=== PATIENT | male | born 1980 | race Caucasian/White ===

== ENCOUNTER 2017-12-04 14:28 | Emergency (ER) | payer BC, OTHER ==
[2017-12-04 14:28] VITALS: BMI 25.0
--- NOTE | 2017-12-04 15:16 | ED PDOC ---
Arrival/HPI - General Historian: Patient, Spouse - History of Present Illness Narrative History of Present Illness (Text): 12/04/17 15:13 37 year old male presents to the emergency department after experiencing difficulty breathing and an enlarged uvula. Patient states he has a history of shellfish allergy and shared a plate of food with his spouse who was eating shrimp. Patient himself did not eat any shrimp but did share a plate with shrimp on it. He had no immediate symptoms however today he felt his throat closing up. His gave him 30mL of benadryl 2 hours prior to arrival which helped with the symptoms. He denies any shortness of breath or wheezing at this time. His uvula is still larger than normal but not painful or obstructing. Denies fever, chills, nausea, vomiting, headache, dizziness, cough, rhinorrhea, chest pain, palpitations, hearing or vision changes, or urinary symptoms. Time/Duration: 24 hours Symptom Onset: Sudden Symptom Course: Improving Severity Level: Mild Context: Home <James Gomes - Last Filed: 12/04/17 15:55> <Misael Diaz DO - Last Filed: 12/04/17 18:12> - General Chief Complaint: ENT Problem Time Seen by Provider: 12/04/17 14:58 Past Medical History - Provider Review Nursing Documentation Reviewed: Yes - Infectious Disease Hx of Infectious Diseases: None - Cardiac Hx Cardiac Disorders: No - Pulmonary Hx Respiratory Disorders: No - Neurological Hx Neurological Disorder: No - HEENT Hx HEENT Disorder: No - Renal Hx Renal Disorder: No - Endocrine/Metabolic Hx Endocrine Disorders: No - Hematological/Oncological Hx Blood Disorders: No - Integumentary Hx Dermatological Disorder: No - Musculoskeletal/Rheumatological Hx Musculoskeletal Disorders: Yes Hx Fractures: Yes - Gastrointestinal Hx Gastrointestinal Disorders: No - Genitourinary/Gynecological Hx Genitourinary Disorders: No - Psychiatric Hx Psychophysiologic Disorder: No Hx Substance Use: No - Surgical History Hx Musculoskeletal Surgery: Yes (right hand fx) - Anesthesia Hx Anesthesia: Yes Hx Anesthesia Reactions: No Hx Malignant Hyperthermia: No - Suicidal Assessment Feels Threatened In Home Enviroment: No <James Gomes - Last Filed: 12/04/17 15:55> Family/Social History - Physician Review Nursing Documentation Reviewed: Yes Family/Social History: Unknown Family HX Smoking Status: E Hx Alcohol Use: Yes Frequency of alcohol use: Socially Hx Substance Use: No <James Gomes - Last Filed: 12/04/17 15:55> Allergies/Home Meds <James Gomes - Last Filed: 12/04/17 15:55> <Misael Diaz DO - Last Filed: 12/04/17 18:12> Allergies/Adverse Reactions: Allergies shellfish derived Allergy (Verified 12/04/17 14:33) SWELLING Review of Systems - Physician Review All systems were reviewed & negative as marked: Yes - Review of Systems Constitutional: absent: Fevers Eyes: absent: Vision Changes ENT: absent: Hearing Changes, Voice Changes, Sore Throat, Rhinorrhea Respiratory: absent: SOB, Cough, Wheezing Cardiovascular: absent: Chest Pain, Palpitations Gastrointestinal: absent: Abdominal Pain, Nausea, Vomiting Genitourinary Male: absent: Dysuria, Hematuria Musculoskeletal: absent: Arthralgias Skin: absent: Rash Neurological: absent: Headache, Dizziness Endocrine: absent: Diaphoresis <James Gomes - Last Filed: 12/04/17 15:55> Physical Exam Vital Signs Reviewed: Yes Vital Signs Temp Pulse Resp BP Pulse Ox 12/04/17 14:34 98.8 F 72 16 135/83 97 Temperature: Afebrile Blood Pressure: Normal Pulse: Regular Respiratory Rate: Normal Appearance: Positive for: Well-Appearing, Non-Toxic, Comfortable Pain Distress: None Mental Status: Positive for: Alert and Oriented X 3 - Systems Exam Head: Present: Atraumatic, Normocephalic Pupils: Present: PERRL Extroacular Muscles: Present: EOMI Mouth: Present: Moist Mucous Membranes, Normal Lips, Normal Tounge, Normal Teeth. No: Drooling Pharnyx: Present: Soft Palate/Uvular Edema. No: ERYTHEMA, EXUDATE, TONSILS ENLARGED, Uvular Deviation, Muffled/Hoarse Voice, Strider Nose (External): Present: Atraumatic Nose (Internal): Present: Normal Inspection Respiratory/Chest: Present: Clear to Auscultation, Good Air Exchange. No: Respiratory Distress, Accessory Muscle Use Cardiovascular: Present: Regular Rate and Rhythm, Normal S1, S2. No: Murmurs Abdomen: No: Tenderness, Distention, Peritoneal Signs Upper Extremity: Present: Normal Inspection. No: Cyanosis, Edema Lower Extremity: Present: Normal Inspection. No: Edema Skin: Present: Warm, Dry, Normal Color. No: Rashes Psychiatric: Present: Alert, Oriented x 3, Normal Insight, Normal Concentration <James Gomes - Last Filed: 12/04/17 15:55> Vital Signs Temp Pulse Resp BP Pulse Ox 12/04/17 14:34 98.8 F 72 16 135/83 97 <Misael Diaz DO - Last Filed: 12/04/17 18:12> Medical Decision Making ED Course and Treatment: 12/04/17 15:18 37M, presents to the ED with allergic reaction presenting as uvula swelling -IM Decadron -Prednisone upon discharge Patient verbalized understanding and agreement of treatment plan case reviewed and discussed with attending provider - Medication Orders Current Medication Orders: Discontinued Medications Dexamethasone (Decadron Inj) 10 mg IM STAT STA Stop: 12/04/17 15:08 <James Gomes - Last Filed: 12/04/17 15:55> ED Course and Treatment: 12/04/17 15:22 Patient Seen with Resident: In agreement with resident note which contains more details about the patient. Patient seen and evaluated with resident. Came up with plan and treatment together. - Medication Orders Current Medication Orders: Discontinued Medications Dexamethasone (Decadron Inj) 10 mg IM STAT STA Stop: 12/04/17 15:08 <Misael Diaz DO - Last Filed: 12/04/17 18:12> - PA / CASCADE OPERATOR / Resident Statement MATT has reviewed & agrees with the documentation as recorded. MATT has examined the patient and agrees with the treatment plan. <Misael Diaz DO - Last Filed: 12/04/17 18:12> Disposition/Present on Arrival - Present on Arrival Any Indicators Present on Arrival: No History of DVT/PE: No History of Uncontrolled Diabetes: No Urinary Catheter: No History of Decub. Ulcer: No History Surgical Site Infection Following: None - Disposition Have Diagnosis and Disposition been Completed?: Yes Disposition Time: 15:20 Patient Plan: Discharge <James Gomes - Last Filed: 12/04/17 15:55> <Misael Diaz DO - Last Filed: 12/04/17 18:12> - Disposition Diagnosis: Food allergy Disposition: HOME/ ROUTINE Condition: GOOD Discharge Instructions (ExitCare): Food Allergy Additional Instructions: YAN TRISTAN, thank you for letting us take care of you today. The emergency medical care you received today was directed at your acute symptoms. If you were prescribed any medication, please fill it and take as directed. It may take several days for your symptoms to resolve. Return to the Emergency Department if your symptoms worsen, do not improve, or if you have any other problems. Please contact your doctor or call one of the physicians/clinics you have been referred to that are listed on the Patient Visit Information form that is included in your discharge packet. Bring any paperwork you were given at discharge with you along with any medications you are taking to your follow up visit. Our treatment cannot replace ongoing medical care by a primary care provider outside of the emergency department. Thank you for allowing the [facility] team to be part of your care today. Follow up with your primary care doctor in 2-3 days for re-evaluation and further management. Prescriptions: predniSONE [Prednisone] 40 mg PO DAILY #6 tab Referrals: PCP,NO [Primary Care Provider] - Follow up with primary Forms: [employer] ([place]ayan)
[2017-12-04 15:41] VITALS: BP 135/73; PULSE 70; RESP 18; TEMP 98.7; O2SAT 100
== END 2017-12-04 15:41 | disposition home or self-care (01) ==
LOC: ED 14:28
DX: L27.2 Dermatitis due to ingested food (principal)
CPT/HCPCS: 96372; 99282; J1100

== ENCOUNTER 2018-01-10 06:59 | Inpatient (IN) | payer BC ==
[2018-01-10 07:21] VITALS: BMI 25.7
--- NOTE | 2018-01-10 07:41 | ED PDOC ---
Arrival/HPI - General Chief Complaint: GI Problem Time Seen by Provider: 01/10/18 07:08 Historian: Patient, Spouse - History of Present Illness Narrative History of Present Illness (Text): 01/10/18 07:40 Patient is a 37 year old male who presents with his to the Emergency department for two episodes of rectal bleeding that occurred today. Patient reports that at approximately 2am today he started feeling like he was about to lose consciousness and became diaphoretic. He subsequently used the bathroom where he had an episode of melena. Per patient experienced syncope approximately 6:30 today, and an an episode of rectal bleeding with bright red blood in the toilet. Patient admits that he takes Advil PM daily to sleep. Per , patient has admitted to her that he experiences intermittent epigastric pain. Patient currently denies fevers, chills, cough, shortness of breath, chest pain, dyspnea on exertion, abdominal pain, nausea, vomiting, diarrhea, back pain, neck pain, headache, dizziness, or any other complaint. Time/Duration: 4-6 hours Symptom Onset: Sudden Symptom Course: Intermittent Context: Home, Work Past Medical History - Provider Review Nursing Documentation Reviewed: Yes - Infectious Disease Hx of Infectious Diseases: None - Cardiac Hx Cardiac Disorders: No - Pulmonary Hx Respiratory Disorders: No - Neurological Hx Neurological Disorder: No - HEENT Hx HEENT Disorder: No - Renal Hx Renal Disorder: No - Endocrine/Metabolic Hx Endocrine Disorders: No - Hematological/Oncological Hx Blood Disorders: No - Integumentary Hx Dermatological Disorder: No - Musculoskeletal/Rheumatological Hx Musculoskeletal Disorders: Yes Hx Fractures: Yes - Gastrointestinal Hx Gastrointestinal Disorders: No - Genitourinary/Gynecological Hx Genitourinary Disorders: No - Psychiatric Hx Psychophysiologic Disorder: No Hx Substance Use: No - Surgical History Hx Musculoskeletal Surgery: Yes (right hand fx) - Anesthesia Hx Anesthesia: Yes Hx Anesthesia Reactions: No Hx Malignant Hyperthermia: No - Suicidal Assessment Feels Threatened In Home Enviroment: No Family/Social History - Physician Review Nursing Documentation Reviewed: Yes Family/Social History: No Known Family HX Smoking Status: Vape Hx Alcohol Use: Yes Frequency of alcohol use: Socially Hx Substance Use: No Allergies/Home Meds Allergies/Adverse Reactions: Allergies shellfish derived Allergy (Verified 01/10/18 07:25) SWELLING Home Medications: Home Meds Medication Instructions Recorded Confirmed Ibuprofen/Diphenhydramine Cit 2 tab PO DAILY 01/10/18 01/10/18 [Advil Pm Caplet] Review of Systems - Physician Review All systems were reviewed & negative as marked: Yes - Review of Systems Constitutional: absent: Fevers, Night Sweats Respiratory: absent: SOB, Cough Cardiovascular: absent: Chest Pain Gastrointestinal: Hematochezia. absent: Abdominal Pain, Nausea, Vomiting Musculoskeletal: absent: Back Pain, Neck Pain Physical Exam - Physical Exam Narrative Physical Exam (Text): 01/10/18 08:06 Constitutional: No acute distress. Head: Normocephalic. Atraumatic. Eyes: PERRL. ENT: Moist mucous membranes. Neck: Supple. Cardiovascular: Regular rate. Chest: No tenderness. Respiratory: Clear to auscultation bilaterally. GI: Soft. Nontender. Nondistended. Rectal Exam: Red blood noted, positive guaiac test. No fissures or hemorrhoids. Back: No CVA tenderness. Musculoskeletal: No tenderness or swelling of extremities. Skin: No rash. Neurologic: Alert, no focal deficit. Vital Signs Reviewed: Yes Vital Signs Temp Pulse Resp BP Pulse Ox 01/10/18 07:21 97.6 F 81 18 106/67 98 Temperature: Afebrile Blood Pressure: Normal Pulse: Regular Respiratory Rate: Normal Appearance: Positive for: Well-Appearing Mental Status: Positive for: Alert and Oriented X 3 Medical Decision Making ED Course and Treatment: 01/10/18 07:40 Impression: 37 year old male who complains of syncope, melena, and an episode of rectal bleeding earlier today. Plan: --EKG -- Labs -- Cardiac enzymes -- Blood work -- Chest X-ray -- Protonix -- Reassess and disposition Prior Visits: Notes and results from previous visits were reviewed. Progress Notes: Accepted to hospitalist service. - Lab Interpretations I have reviewed the lab results: Yes - RAD Interpretation Narrative RAD Interpretations (Text): 01/10/18 09:07 Chest X-ray: Dictator : Wili Santoro MD IMPRESSION: No active disease. Steam Tank Operator: Radiologist - EKG Interpretation EKG Interpretation (Text): 01/10/18 07:51 EKG shows NSR at [address] elevations. Normal axis and intervals. Interpreted by me. Interpreted by ED Physician: Yes Type: 12 lead EKG - Scribe Statement The provider has reviewed the documentation as recorded by the Scribe Keith Mixon Provider Scribe Attestation: All medical record entries made by the Scribe were at my direction and personally dictated by me. I have reviewed the chart and agree that the record accurately reflects my personal performance of the history, physical exam, medical decision making, and the department course for this patient. I have also personally directed, reviewed, and agree with the discharge instructions and disposition. Disposition/Present on Arrival - Present on Arrival Any Indicators Present on Arrival: No History of DVT/PE: No History of Uncontrolled Diabetes: No Urinary Catheter: No History of Decub. Ulcer: No History Surgical Site Infection Following: None - Disposition Have Diagnosis and Disposition been Completed?: Yes Diagnosis: GI bleed, Symptomatic anemia Disposition: HOSPITALIZED Disposition Time: 08:45 Patient Plan: Admission Condition: GUARDED
[2018-01-10 08:23] LABS: BASO # 0.01 K/mm3 (0.0-2.0); BASO % 0.1 % (0.0-3.0); EOS # 0.2 (0.0-0.7); EOS % 2.5 % (1.5-5.0); GRAN # 4.74 (1.4-6.5); GRAN % 57.5 % (50.0-68.0); HEMOGLOBIN 12.1 g/dL (14.0-18.0); LYMPH # 2.7 (1.2-3.4); LYMPH % 33.1 % (22.0-35.0); MEAN CELL VOLUME 83.9 fl (80.0-105.0); MEAN CORPUSCULAR HEMOGLOBIN 28.2 pg (25.0-35.0); MEAN CORPUSCULAR HGB CONC 33.6 g/dl (31.0-37.0); MONO # 0.6 (0.1-0.6); MONO % 6.8 % (1.0-6.0); RBC 4.29 10^6/uL (3.5-6.1); RED CELL DISTRIBUTION WIDTH 12.1 % (11.5-14.5); WHITE BLOOD COUNT 8.3 10^3/uL (4.5-11.0)
[2018-01-10 08:30] LABS: ALB/GLOB RATIO 1.5 (1.1-1.8); ALBUMIN 3.7 g/dL (3.0-4.8); ALT/SGPT 27 U/L (7-56); AST/SGOT 21 U/L (17-59); BLOOD UREA NITROGEN 32 mg/dL (7-21); CALCIUM 8.3 mg/dL (8.4-10.5); GFR NON-AFRICAN AMERICAN > 60; LIPASE 92 U/L (23-300)
[2018-01-10 08:31] LABS: PARTIAL THROMBOPLASTIN TIME 24.7 Seconds (25.1-36.5); PROTHROMBIN TIME 11.5 SECONDS (9.4-12.5)
--- NOTE | 2018-01-10 08:41 | RAD ---
Date of service: 01/10/2018 HISTORY: gi bleed COMPARISON: No prior. FINDINGS: LUNGS: No active pulmonary disease. PLEURA: No significant pleural effusion identified, no pneumothorax apparent. CARDIOVASCULAR: No aortic atherosclerotic calcification present. Normal cardiac size. No pulmonary vascular congestion. OSSEOUS STRUCTURES: No significant abnormalities. VISUALIZED UPPER ABDOMEN: Normal. OTHER FINDINGS: None. IMPRESSION: No active disease.
[2018-01-10 08:42] LABS: TROPONIN I < 0.01 ng/mL
[2018-01-10] MEDS ORDERED: Sodium Chloride 0.9% 1,000 ML IV SCH ×2 (09:45→09:46)
--- NOTE | 2018-01-10 10:20 | CP.PCM.CON ---
<Baltazar Spears - Last Filed: 01/10/18 10:20> History of Present Illness - History of Present Illness History of Present Illness: PGY-2 GI consult note for Dr Pham Mr Gaitan is a 37 year old male with no significant past medical history who presents to the ED accompanied by his because for dark red blood per rectum. He stated that at approx 2am today he started feeling like he was about to lose consciousness and became diaphoretic. He subsequently used the bathroom where he noticed blood in the toilet bowl. Per patient experienced pre- syncope approximately 6:30am, and an another episode of rectal bleeding with bright red blood in the toilet. Patient admits he experiences intermittent epigastric pain. Of note, patient has been taking sleep aids since he was a teenager however he recently switched to Advil PM about 2 months ago and has been taking 1-2 tablets every night. Patient currently denies fevers, chills, cough, shortness of breath, chest pain, dyspnea on exertion, abdominal pain, nausea, vomiting, diarrhea, back pain, neck pain, headache, dizziness, or any ot her complaint. PMHx: no significant past medical hx PSHx: right hand fracture Allergies: shellfish - rash Home Medications: Advil PM every night for sleep SocialHx: uses a vape pen daily for past 5 years, social alcohol use, denies illicits, lives at home with and 3 kids FamHx: denies hx of colon ca Review of Systems - Constitutional Constitutional: absent: Chills, Fever - EENT Eyes: absent: Change in Vision - Cardiovascular Cardiovascular: absent: Chest Pain, Dyspnea on Exertion - Respiratory Respiratory: absent: Cough, Dyspnea - Gastrointestinal Gastrointestinal: Abdominal Pain, Melena, Nausea. absent: Bloating, Change in Bowel Habits, Coffee Ground Emesis, Vomiting - Genitourinary Genitourinary: absent: Dysuria - Musculoskeletal Musculoskeletal: absent: Back Pain - Integumentary Integumentary: absent: Bleeding Lesions Past Patient History - Infectious Disease Hx of Infectious Diseases: None - Past Social History Smoking Status: Vape - CARDIAC Hx Cardiac Disorders: No - PULMONARY Hx Respiratory Disorders: No - NEUROLOGICAL Hx Neurological Disorder: No - HEENT Hx HEENT Problems: No - RENAL Hx Chronic Kidney Disease: No - ENDOCRINE/METABOLIC Hx Endocrine Disorders: No - HEMATOLOGICAL/ONCOLOGICAL Hx Blood Disorders: No - INTEGUMENTARY Hx Dermatological Problems: No - MUSCULOSKELETAL/RHEUMATOLOGICAL Hx Musculoskeletal Disorders: Yes Hx Fractures: Yes - GASTROINTESTINAL Hx Gastrointestinal Disorders: No - GENITOURINARY/GYNECOLOGICAL Hx Genitourinary Disorders: No - PSYCHIATRIC Hx Psychophysiologic Disorder: No Hx Substance Use: No - SURGICAL HISTORY Hx Musculoskeletal Surgery: Yes (right hand fx) - ANESTHESIA Hx Anesthesia: Yes Hx Anesthesia Reactions: No Hx Malignant Hyperthermia: No Meds Allergies/Adverse Reactions: Allergies Allergy/AdvReac Type Severity Reaction Status Date / Time shellfish derived Allergy SWELLING Verified 01/10/18 14:41 - Medications Medications: Current Medications Sodium Chloride (Sodium Chloride 0.9%) 1,000 mls @ 125 mls/hr IV .Q8H BERTIN Ondansetron HCl (Zofran Inj) 4 mg IVP Q6H PRN PRN Reason: Nausea/Vomiting Pantoprazole Sodium (Protonix Inj) 40 mg IVP Q12 BERTIN Physical Exam - Constitutional Appears: Well, No Acute Distress - Head Exam Head Exam: ATRAUMATIC, NORMAL INSPECTION - Eye Exam Eye Exam: EOMI, Normal appearance, PERRL. absent: Scleral icterus - ENT Exam ENT Exam: Mucous Membranes Moist - Respiratory Exam Respiratory Exam: Clear to Auscultation Bilateral. absent: Rales, Rhonchi, Wheezes - Cardiovascular Exam Cardiovascular Exam: REGULAR RHYTHM, +S1, +S2. absent: Tachycardia, JVD, Systolic Murmur - GI/Abdominal Exam GI & Abdominal Exam: Normal Bowel Sounds, Soft. absent: Distended, Firm, Guarding, Hernia, Tenderness - Rectal Exam Additional comments: -Rectal exam in ED showed red blood, positive guaiac test, no fissures or hemorroids -Rectal exam a few hours later on floors showed increased rectal tone, brown stool, no ria blood - Extremities Exam Extremities exam: Positive for: normal inspection - Neurological Exam Neurological exam: Alert, Oriented x3 - Skin Skin Exam: Normal Color, Warm Results - Vital Signs Recent Vital Signs: Last Vital Signs Temp 98.2 F 01/10/18 09:41 Pulse 76 01/10/18 09:41 Resp 16 01/10/18 09:41 BP 116/73 01/10/18 09:41 Pulse Ox 97 01/10/18 09:41 - Labs Result Diagrams: 01/10/18 08:03 01/10/18 08:03 Labs: Laboratory Results - last 24 hr 01/10/18 01/10/18 01/10/18 08:00 08:03 08:03 WBC 8.3 RBC 4.29 Hgb 12.1 L Hct 36.0 L MCV 83.9 MCH 28.2 MCHC 33.6 RDW 12.1 Plt Count 258 MPV 10.0 Gran % 57.5 Lymph % (Auto) 33.1 Chester % (Auto) 6.8 H Eos % (Auto) 2.5 Baso % (Auto) 0.1 Gran # 4.74 Lymph # (Auto) 2.7 Chester # (Auto) 0.6 Eos # (Auto) 0.2 Baso # (Auto) 0.01 PT 11.5 INR 1.00 APTT 24.7 L Sodium Potassium Chloride Carbon Dioxide Anion Gap BUN Creatinine Est GFR ( Amer) Est GFR (Non-Af Amer) Random Glucose Calcium Phosphorus 3.0 Magnesium 2.1 Total Bilirubin AST ALT Alkaline Phosphatase Troponin I Total Protein Albumin Globulin Albumin/Globulin Ratio Lipase Blood Type Blood Type Confirm Antibody Screen BBK History Checked 01/10/18 01/10/18 01/10/18 08:03 08:03 08:03 WBC RBC Hgb Hct MCV MCH MCHC RDW Plt Count MPV Gran % Lymph % (Auto) Chester % (Auto) Eos % (Auto) Baso % (Auto) Gran # Lymph # (Auto) Chester # (Auto) Eos # (Auto) Baso # (Auto) PT INR APTT Sodium 136 Potassium 4.8 Chloride 106 Carbon Dioxide 25 Anion Gap 10 BUN 32 H Creatinine 0.9 Est GFR ( Amer) > 60 Est GFR (Non-Af Amer) > 60 Random Glucose 104 Calcium 8.3 L Phosphorus Magnesium Total Bilirubin 0.2 AST 21 ALT 27 Alkaline Phosphatase 64 Troponin I < 0.01 Total Protein 6.2 Albumin 3.7 Globulin 2.5 Albumin/Globulin Ratio 1.5 Lipase 92 Blood Type O POSITIVE Blood Type Confirm O POSITIVE Antibody Screen Negative BBK History Checked No verified bt Assessment & Plan - Assessment and Plan (Free Text) Plan: Mr Gaitan is a 37 year old male with no significant past medical history who presents to the ED for two episodes of dark red blood per rectum: Hematochezia -likely 2/2 to daily nsaid use (had been taking advil PM nightly for past 2 months) -trend hemoglobin with serial H/H's -protonix 40mg ivp q12h - switch to drip if further bleeding noticed -npo until H/H stablized -zofran for nausea -f/u orthostatics -f/u alcohol and urine drug screen -patient will benefit from EGD to rule out upper gi bleed, scheduling time will depend on patient's clinical course and hgb level Seen and discussed with Dr Pham <Gladis Pham V - Last Filed: 01/10/18 19:35> Meds - Medications Medications: Current Medications Sodium Chloride (Sodium Chloride 0.9%) 1,000 mls @ 125 mls/hr IV .Q8H BERTIN Ondansetron HCl (Zofran Inj) 4 mg IVP Q6H PRN PRN Reason: Nausea/Vomiting Pantoprazole Sodium (Protonix Inj) 40 mg IVP Q12 BERTIN Results - Vital Signs Recent Vital Signs: Last Vital Signs Temp 98 F 01/10/18 14:00 Pulse 74 01/10/18 14:00 Resp 16 01/10/18 14:43 BP 116/73 01/10/18 09:41 Pulse Ox 98 01/10/18 14:00 - Labs Result Diagrams: 01/10/18 14:00 01/10/18 08:03 Labs: Laboratory Results - last 24 hr 01/10/18 01/10/18 01/10/18 08:00 08:00 08:03 WBC 8.3 RBC 4.29 Hgb 12.1 L Hct 36.0 L MCV 83.9 MCH 28.2 MCHC 33.6 RDW 12.1 Plt Count 258 MPV 10.0 Gran % 57.5 Lymph % (Auto) 33.1 Chester % (Auto) 6.8 H Eos % (Auto) 2.5 Baso % (Auto) 0.1 Gran # 4.74 Lymph # (Auto) 2.7 Chester # (Auto) 0.6 Eos # (Auto) 0.2 Baso # (Auto) 0.01 PT INR APTT Sodium Potassium Chloride Carbon Dioxide Anion Gap BUN Creatinine Est GFR ( Amer) Est GFR (Non-Af Amer) Random Glucose Calcium Phosphorus 3.0 Magnesium 2.1 Total Bilirubin AST ALT Alkaline Phosphatase Troponin I Total Protein Albumin Globulin Albumin/Globulin Ratio Lipase Urine Opiates Screen Urine Methadone Screen Ur Barbiturates Screen Ur Phencyclidine Scrn Ur Amphetamines Screen U Benzodiazepines Scrn U Oth Cocaine Metabols U Cannabinoids Screen Alcohol, Quantitative < 10 Blood Type Blood Type Confirm Antibody Screen BBK History Checked 01/10/18 01/10/18 01/10/18 08:03 08:03 08:03 WBC RBC Hgb Hct MCV MCH MCHC RDW Plt Count MPV Gran % Lymph % (Auto) Chester % (Auto) Eos % (Auto) Baso % (Auto) Gran # Lymph # (Auto) Chester # (Auto) Eos # (Auto) Baso # (Auto) PT 11.5 INR 1.00 APTT 24.7 L Sodium 136 Potassium 4.8 Chloride 106 Carbon Dioxide 25 Anion Gap 10 BUN 32 H Creatinine 0.9 Est GFR ( Amer) > 60 Est GFR (Non-Af Amer) > 60 Random Glucose 104 Calcium 8.3 L Phosphorus Magnesium Total Bilirubin 0.2 AST 21 ALT 27 Alkaline Phosphatase 64 Troponin I < 0.01 Total Protein 6.2 Albumin 3.7 Globulin 2.5 Albumin/Globulin Ratio 1.5 Lipase 92 Urine Opiates Screen Urine Methadone Screen Ur Barbiturates Screen Ur Phencyclidine Scrn Ur Amphetamines Screen U Benzodiazepines Scrn U Oth Cocaine Metabols U Cannabinoids Screen Alcohol, Quantitative Blood Type O POSITIVE Blood Type Confirm Antibody Screen Negative BBK History Checked No verified bt 01/10/18 01/10/18 01/10/18 08:03 13:45 14:00 WBC 7.0 RBC 4.02 Hgb 11.3 L Hct 34.1 L MCV 84.8 MCH 28.1 MCHC 33.1 RDW 12.2 Plt Count 258 MPV 10.4 Gran % Lymph % (Auto) Chester % (Auto) Eos % (Auto) Baso % (Auto) Gran # Lymph # (Auto) Chester # (Auto) Eos # (Auto) Baso # (Auto) PT INR APTT Sodium Potassium Chloride Carbon Dioxide Anion Gap BUN Creatinine Est GFR ( Amer) Est GFR (Non-Af Amer) Random Glucose Calcium Phosphorus Magnesium Total Bilirubin AST ALT Alkaline Phosphatase Troponin I < 0.01 Total Protein Albumin Globulin Albumin/Globulin Ratio Lipase Urine Opiates Screen Urine Methadone Screen Ur Barbiturates Screen Ur Phencyclidine Scrn Ur Amphetamines Screen U Benzodiazepines Scrn U Oth Cocaine Metabols U Cannabinoids Screen Alcohol, Quantitative Blood Type Blood Type Confirm O POSITIVE Antibody Screen BBK History Checked 01/10/18 17:40 WBC RBC Hgb Hct MCV MCH MCHC RDW Plt Count MPV Gran % Lymph % (Auto) Chester % (Auto) Eos % (Auto) Baso % (Auto) Gran # Lymph # (Auto) Chester # (Auto) Eos # (Auto) Baso # (Auto) PT INR APTT Sodium Potassium Chloride Carbon Dioxide Anion Gap BUN Creatinine Est GFR ( Amer) Est GFR (Non-Af Amer) Random Glucose Calcium Phosphorus Magnesium Total Bilirubin AST ALT Alkaline Phosphatase Troponin I Total Protein Albumin Globulin Albumin/Globulin Ratio Lipase Urine Opiates Screen Negative Urine Methadone Screen Negative Ur Barbiturates Screen Negative Ur Phencyclidine Scrn Negative Ur Amphetamines Screen Negative U Benzodiazepines Scrn Negative U Oth Cocaine Metabols Negative U Cannabinoids Screen Negative Alcohol, Quantitative Blood Type Blood Type Confirm Antibody Screen BBK History Checked Attending/Attestation - Attestation I have personally seen and examined this patient.: Yes I have fully participated in the care of the patient.: Yes I have reviewed all pertinent clinical information: Yes Notes (Text): This is an addendum to GI consult report dictated by the Development Technician.The patient was seen and evaluated earlier. Medical records, lab studies, imagings were reviewed. Last 24 hours events reviewed. Agreed with the above treatment plan as outlined in Development Technician 's notes with the addition of the following This patient was admitted with bleeding per rectum and syncopal episode History of NSAID use Mildly elevated bilirubin Rule out UGI bleeding source Other DD include Lower GI source including hemorrhoids diverticulosis AVM Followup Hb HCT EGD continue IV protonix 01/10/18 19:33
--- NOTE | 2018-01-10 12:27 | CARD ---
APPROVED REPORT Date of service: 01/10/2018 EKG Measurement Heart [id number] <Conclusion> Poor data quality, interpretation may be adversely affected Normal sinus rhythm Nonspecific ST and T wave abnormality Abnormal ECG
--- NOTE | 2018-01-10 13:51 | CP.PCM.HP ---
<Bishop García - Last Filed: 01/10/18 13:42> History of Present Illness - History of Present Illness History of Present Illness: Bishop García, PGY1 History and Physical for Dr. Garibay. cc: rectal bleeding Patient is a 37 y/o M with no PMHx who present to the ED accompanied by his for dark red blood per rectum. He stated that at approximately 2am today he started feeling like he was about to lose consciousness and became diaphoretic. He subsequently used the bathroom where he noticed blood in the toilet bowl. In the ED, vital signs are stable. Patient's Hgb was 12.1. Patient was in no acute distress and not actively bleeding. Rectal exam in ED showed red blood, positive guaiac test, no fissures or hemorroids. Medical team was consulted for evaluation of rectal bleeding. Patient had an episode of syncope at around 6:30 am this morning with another episode of rectal bleeding with bright red blood per rectum. Patient has been taking Advil twice a day to help with his insomnia. Patient denies fevers, chills, shortness of breath, chest pain, abdominal pain, nausea, vomiting, lower extremity pain and edema. Vital signs are stable. A full 12 point ROS was conducted and unremarkable except as stated above. PMHx: no significant past medical hx PSHx: right hand fracture Allergies: shellfish - rash Home Medications: Advil PM every night for sleep SocialHx: uses a vape pen daily for past 5 years, social alcohol use, denies illicits, lives at home with and 3 kids FamHx: denies hx of colon ca Present on Admission - Present on Admission Any Indicators Present on Admission: No History of DVT/PE: No History of Uncontrolled Diabetes: No Urinary Catheter: No Decubitus Ulcer Present: No Review of Systems - Review of Systems All systems: reviewed and no additional remarkable complaints except (as per HPI.) Past Patient History - Infectious Disease Hx of Infectious Diseases: None - Past Social History Smoking Status: Vape - CARDIAC Hx Cardiac Disorders: No - PULMONARY Hx Respiratory Disorders: No - NEUROLOGICAL Hx Neurological Disorder: No - HEENT Hx HEENT Problems: No - RENAL Hx Chronic Kidney Disease: No - ENDOCRINE/METABOLIC Hx Endocrine Disorders: No - HEMATOLOGICAL/ONCOLOGICAL Hx Blood Disorders: No - INTEGUMENTARY Hx Dermatological Problems: No - MUSCULOSKELETAL/RHEUMATOLOGICAL Hx Musculoskeletal Disorders: Yes Hx Fractures: Yes - GASTROINTESTINAL Hx Gastrointestinal Disorders: No - GENITOURINARY/GYNECOLOGICAL Hx Genitourinary Disorders: No - PSYCHIATRIC Hx Psychophysiologic Disorder: No Hx Substance Use: No - SURGICAL HISTORY Hx Musculoskeletal Surgery: Yes (right hand fx) - ANESTHESIA Hx Anesthesia: Yes Hx Anesthesia Reactions: No Hx Malignant Hyperthermia: No Meds Allergies/Adverse Reactions: Allergies Allergy/AdvReac Type Severity Reaction Status Date / Time shellfish derived Allergy SWELLING Verified 01/10/18 14:41 Physical Exam - Constitutional Appears: No Acute Distress - Head Exam Head Exam: ATRAUMATIC, NORMAL INSPECTION, NORMOCEPHALIC - Eye Exam Eye Exam: EOMI, Normal appearance, PERRL Pupil Exam: NORMAL ACCOMODATION, PERRL - ENT Exam ENT Exam: Mucous Membranes Moist, Normal Exam - Neck Exam Neck exam: Positive for: Normal Inspection - Respiratory Exam Respiratory Exam: Clear to Auscultation Bilateral, NORMAL BREATHING PATTERN. absent: Rales, Rhonchi, Wheezes - Cardiovascular Exam Cardiovascular Exam: RRR, +S1, +S2 - GI/Abdominal Exam GI & Abdominal Exam: Normal Bowel Sounds, Soft. absent: Firm, Guarding, Mass, Organomegaly, Rebound, Rigid, Tenderness - Rectal Exam Rectal Exam: Deferred (Patient had two rectal exams prior to interview. ) - Extremities Exam Extremities exam: Positive for: normal capillary refill, normal inspection, pedal pulses present. Negative for: pedal edema, tenderness - Neurological Exam Neurological exam: Alert, CN II-XII Intact, Normal Gait, Oriented x3, Reflexes Normal - Skin Skin Exam: Dry, Intact, Normal Color, Warm Results - Vital Signs Recent Vital Signs: Last Vital Signs Temp 98.2 F 01/10/18 09:41 Pulse 76 01/10/18 09:41 Resp 16 01/10/18 09:41 BP 116/73 01/10/18 09:41 Pulse Ox 97 01/10/18 09:41 - Labs Result Diagrams: 01/10/18 08:03 01/10/18 08:03 Labs: Laboratory Results - last 24 hr 01/10/18 01/10/18 01/10/18 08:00 08:00 08:03 WBC 8.3 RBC 4.29 Hgb 12.1 L Hct 36.0 L MCV 83.9 MCH 28.2 MCHC 33.6 RDW 12.1 Plt Count 258 MPV 10.0 Gran % 57.5 Lymph % (Auto) 33.1 Long % (Auto) 6.8 H Eos % (Auto) 2.5 Baso % (Auto) 0.1 Gran # 4.74 Lymph # (Auto) 2.7 Long # (Auto) 0.6 Eos # (Auto) 0.2 Baso # (Auto) 0.01 PT INR APTT Sodium Potassium Chloride Carbon Dioxide Anion Gap BUN Creatinine Est GFR ( Amer) Est GFR (Non-Af Amer) Random Glucose Calcium Phosphorus 3.0 Magnesium 2.1 Total Bilirubin AST ALT Alkaline Phosphatase Troponin I Total Protein Albumin Globulin Albumin/Globulin Ratio Lipase Alcohol, Quantitative < 10 Blood Type Blood Type Confirm Antibody Screen BBK History Checked 01/10/18 01/10/18 01/10/18 08:03 08:03 08:03 WBC RBC Hgb Hct MCV MCH MCHC RDW Plt Count MPV Gran % Lymph % (Auto) Long % (Auto) Eos % (Auto) Baso % (Auto) Gran # Lymph # (Auto) Long # (Auto) Eos # (Auto) Baso # (Auto) PT 11.5 INR 1.00 APTT 24.7 L Sodium 136 Potassium 4.8 Chloride 106 Carbon Dioxide 25 Anion Gap 10 BUN 32 H Creatinine 0.9 Est GFR ( Amer) > 60 Est GFR (Non-Af Amer) > 60 Random Glucose 104 Calcium 8.3 L Phosphorus Magnesium Total Bilirubin 0.2 AST 21 ALT 27 Alkaline Phosphatase 64 Troponin I < 0.01 Total Protein 6.2 Albumin 3.7 Globulin 2.5 Albumin/Globulin Ratio 1.5 Lipase 92 Alcohol, Quantitative Blood Type O POSITIVE Blood Type Confirm Antibody Screen Negative BBK History Checked No verified bt 01/10/18 08:03 WBC RBC Hgb Hct MCV MCH MCHC RDW Plt Count MPV Gran % Lymph % (Auto) Long % (Auto) Eos % (Auto) Baso % (Auto) Gran # Lymph # (Auto) Long # (Auto) Eos # (Auto) Baso # (Auto) PT INR APTT Sodium Potassium Chloride Carbon Dioxide Anion Gap BUN Creatinine Est GFR ( Amer) Est GFR (Non-Af Amer) Random Glucose Calcium Phosphorus Magnesium Total Bilirubin AST ALT Alkaline Phosphatase Troponin I Total Protein Albumin Globulin Albumin/Globulin Ratio Lipase Alcohol, Quantitative Blood Type Blood Type Confirm O POSITIVE Antibody Screen BBK History Checked Assessment & Plan - Assessment and Plan (Free Text) Assessment: Patient is a 37 y/o M with no significant PMHx who presented to the ED for x2 episodes of rectal bleeding and pre-syncopal episode. Patient is admitted for Hematochezia and pre-syncope. Plan: Hematochezia 2/2 NSAID use - Patient has used Advil for the past 2 months, 2 times a day. - Hgb 12.1 on admission - Trend H/H q4-6 hours. - Type and Cross. Transfuse as needed. - NPO - Protonix q12; consider gtt if bleeding worsens - NS at 125 mls/hr - GI consulted (Dr. Cano) - zofran for nausea - f/u orthostatics - alcohol level and urine drug screen - GI consulted (Dr. Cano) - Consider endoscopy Pre-syncopal episode - Orthostatics met: sitting (BP 129/66 HR 77) to standing (119/64 HR 97) - EKG NSR with no ST or T wave changes. - CXR: no active disease DVT ppx: SCD GI ppx: PTX 40 mg Q12 Dispo: monitor patient on the floor. Follow up GI recommendations. Case was discussed and reviewed with Attending Physician, Dr. Garibay. <Yue Garibay - Last Filed: 01/10/18 18:03> Results - Vital Signs Recent Vital Signs: Last Vital Signs Temp 98 F 01/10/18 14:00 Pulse 74 01/10/18 14:00 Resp 16 01/10/18 14:43 BP 116/73 01/10/18 09:41 Pulse Ox 98 01/10/18 14:00 - Labs Result Diagrams: 01/10/18 14:00 01/10/18 08:03 Labs: Laboratory Results - last 24 hr 01/10/18 01/10/18 01/10/18 08:00 08:00 08:03 WBC 8.3 RBC 4.29 Hgb 12.1 L Hct 36.0 L MCV 83.9 MCH 28.2 MCHC 33.6 RDW 12.1 Plt Count 258 MPV 10.0 Gran % 57.5 Lymph % (Auto) 33.1 Long % (Auto) 6.8 H Eos % (Auto) 2.5 Baso % (Auto) 0.1 Gran # 4.74 Lymph # (Auto) 2.7 Long # (Auto) 0.6 Eos # (Auto) 0.2 Baso # (Auto) 0.01 PT INR APTT Sodium Potassium Chloride Carbon Dioxide Anion Gap BUN Creatinine Est GFR ( Amer) Est GFR (Non-Af Amer) Random Glucose Calcium Phosphorus 3.0 Magnesium 2.1 Total Bilirubin AST ALT Alkaline Phosphatase Troponin I Total Protein Albumin Globulin Albumin/Globulin Ratio Lipase Alcohol, Quantitative < 10 Blood Type Blood Type Confirm Antibody Screen BBK History Checked 01/10/18 01/10/18 01/10/18 08:03 08:03 08:03 WBC RBC Hgb Hct MCV MCH MCHC RDW Plt Count MPV Gran % Lymph % (Auto) Long % (Auto) Eos % (Auto) Baso % (Auto) Gran # Lymph # (Auto) Long # (Auto) Eos # (Auto) Baso # (Auto) PT 11.5 INR 1.00 APTT 24.7 L Sodium 136 Potassium 4.8 Chloride 106 Carbon Dioxide 25 Anion Gap 10 BUN 32 H Creatinine 0.9 Est GFR ( Amer) > 60 Est GFR (Non-Af Amer) > 60 Random Glucose 104 Calcium 8.3 L Phosphorus Magnesium Total Bilirubin 0.2 AST 21 ALT 27 Alkaline Phosphatase 64 Troponin I < 0.01 Total Protein 6.2 Albumin 3.7 Globulin 2.5 Albumin/Globulin Ratio 1.5 Lipase 92 Alcohol, Quantitative Blood Type O POSITIVE Blood Type Confirm Antibody Screen Negative BBK History Checked No verified bt 01/10/18 01/10/18 01/10/18 08:03 13:45 14:00 WBC 7.0 RBC 4.02 Hgb 11.3 L Hct 34.1 L MCV 84.8 MCH 28.1 MCHC 33.1 RDW 12.2 Plt Count 258 MPV 10.4 Gran % Lymph % (Auto) Long % (Auto) Eos % (Auto) Baso % (Auto) Gran # Lymph # (Auto) Long # (Auto) Eos # (Auto) Baso # (Auto) PT INR APTT Sodium Potassium Chloride Carbon Dioxide Anion Gap BUN Creatinine Est GFR ( Amer) Est GFR (Non-Af Amer) Random Glucose Calcium Phosphorus Magnesium Total Bilirubin AST ALT Alkaline Phosphatase Troponin I < 0.01 Total Protein Albumin Globulin Albumin/Globulin Ratio Lipase Alcohol, Quantitative Blood Type Blood Type Confirm O POSITIVE Antibody Screen BBK History Checked Attending/Attestation - Attestation I have personally seen and examined this patient.: Yes I have fully participated in the care of the patient.: Yes I have reviewed all pertinent clinical information: Yes Notes (Text): 01/10/18 18:00 37 year old male with no significant past medical history who presents with complaint of rectal bleeding and presyncopal episoder last night. R/o GIB in setting of NSAIDs use (takes advil 2 tabs qpm). Will obtain serial H/H; transfuse if drop in hemoglobin. Orthostatics ordered. Started on iv fluids and protonix. GI evaluation is requested for possible EGD. Case discussed with Dr. Pham. Yue Garibay MD Hospitalist.
[2018-01-10] MEDS ORDERED: Influenza Vaccine 60 mcg/0.5 mL SYR (4YR UP) IM ONE (15:13)
[2018-01-10] MEDS ORDERED: Pneumococcal 23-Valent Vaccine IM ONE (15:13)
[2018-01-10 17:46] LABS: HEMOGLOBIN 11.3 g/dL (14.0-18.0); MEAN CELL VOLUME 84.8 fl (80.0-105.0); MEAN CORPUSCULAR HEMOGLOBIN 28.1 pg (25.0-35.0); MEAN CORPUSCULAR HGB CONC 33.1 g/dl (31.0-37.0); MEAN PLATELET VOLUME 10.4 fl (7.0-11.0); RBC 4.02 10^6/uL (3.5-6.1); RED CELL DISTRIBUTION WIDTH 12.2 % (11.5-14.5)
[2018-01-10 18:34] LABS: BARBITURATES, UR NEGATIVE (NEGATIVE); BENZODIAZEPINES, UR NEGATIVE (NEGATIVE); OPIATES, UR NEGATIVE (NEGATIVE); PHENCYCLIDINE, UR NEGATIVE (NEGATIVE)
[2018-01-10 20:04] LABS: HEMOGLOBIN 10.5 g/dL (14.0-18.0)
[2018-01-11 07:22] LABS: BASO # 0.01 K/mm3 (0.0-2.0); BASO % 0.2 % (0.0-3.0); EOS # 0.2 (0.0-0.7); GRAN # 1.92 (1.4-6.5); GRAN % 36.1 % (50.0-68.0); HEMOGLOBIN 10.5 g/dL (14.0-18.0); LYMPH # 2.7 (1.2-3.4); LYMPH % 51.6 % (22.0-35.0); MEAN CELL VOLUME 84.4 fl (80.0-105.0); MEAN CORPUSCULAR HEMOGLOBIN 28.3 pg (25.0-35.0); MEAN CORPUSCULAR HGB CONC 33.5 g/dl (31.0-37.0); MEAN PLATELET VOLUME 10.1 fl (7.0-11.0); MONO # 0.4 (0.1-0.6); MONO % 8.1 % (1.0-6.0); RBC 3.71 10^6/uL (3.5-6.1); RED CELL DISTRIBUTION WIDTH 12.3 % (11.5-14.5); WHITE BLOOD COUNT 5.3 10^3/uL (4.5-11.0)
[2018-01-11] MEDS ORDERED: Pantoprazole 40 mg EC Tab PO SCH (07:30)
[2018-01-11 07:36] LABS: ALB/GLOB RATIO 1.4 (1.1-1.8); ALBUMIN 3.2 g/dL (3.0-4.8); ALT/SGPT 28 U/L (7-56); AST/SGOT 17 U/L (17-59); BLOOD UREA NITROGEN 13 mg/dL (7-21); CALCIUM 8.3 mg/dL (8.4-10.5); GFR NON-AFRICAN AMERICAN > 60
[2018-01-11] MEDS ORDERED: Midazolam 2 MG/2 ML VIAL ONE (15:35)
[2018-01-11] MEDS ORDERED: Propofol 10 mg/ml Inj (20 ML) ONE (15:35)
[2018-01-11] MEDS ORDERED: Sodium Chloride 0.9% 1,000 ML IV SCH (16:45)
[2018-01-11 16:48] VITALS: O2SAT 99
--- NOTE | 2018-01-11 21:12 | CP.PCM.PN ---
<Bishop García - Last Filed: 01/11/18 21:09> Subjective - Date & Time of Evaluation Date of Evaluation: 01/11/18 Time of Evaluation: 07:00 - Subjective Subjective: Bishop García, PGY1 Progress Note for Dr. Garibay Patient was seen and examined at bedside this morning. Vital signs are stable. No adverse events overnight. Patient has not had another bowel movement or any other episodes of rectal bleeding since prior to admission. Denies episodes of lightheadedness, dizziness, fatigue, abdominal pain, cp, sob, n/v/d. Patient is planned for endoscopy today as per GI. A full 12 point ROS was conducted and unremarkable except as stated above. Objective - Vital Signs/Intake and Output Vital Signs (last 24 hours): Temp Pulse Resp BP Pulse Ox 98 F 71 16 103/60 99 01/11/18 17:22 01/11/18 17:22 01/11/18 17:22 01/11/18 17:22 01/11/18 17:22 Intake and Output: 01/11/18 01/12/18 18:59 06:59 Intake Total 875 Balance 875 - Medications Medications: Current Medications Sodium Chloride (Sodium Chloride 0.9%) 1,000 mls @ 100 mls/hr IV .Q10H BERTIN Ondansetron HCl (Zofran Inj) 4 mg IVP Q6H PRN PRN Reason: Nausea/Vomiting Pantoprazole Sodium (Protonix Inj) 40 mg IVP Q12 BERTIN Last Admin: 01/11/18 17:55 Dose: 40 mg - Labs Labs: 01/11/18 06:30 01/11/18 06:30 PT 11.5 SECONDS (9.4-12.5) 01/10/18 08:03 INR 1.00 01/10/18 08:03 APTT 24.7 Seconds (25.1-36.5) L 01/10/18 08:03 - Constitutional Appears: Well, No Acute Distress - Head Exam Head Exam: ATRAUMATIC, NORMAL INSPECTION, NORMOCEPHALIC - Eye Exam Eye Exam: EOMI, Normal appearance, PERRL Pupil Exam: NORMAL ACCOMODATION, PERRL - ENT Exam ENT Exam: Mucous Membranes Moist, Normal Exam - Respiratory Exam Respiratory Exam: Clear to Ausculation Bilateral, NORMAL BREATHING PATTERN. absent: Rales, Rhonchi, Wheezes - Cardiovascular Exam Cardiovascular Exam: REGULAR RHYTHM, +S1, +S2. absent: Murmur - GI/Abdominal Exam GI & Abdominal Exam: Soft, Normal Bowel Sounds. absent: Guarding, Rigid, Tenderness, Organomegaly, Rebound - Extremities Exam Extremities Exam: Full ROM, Normal Capillary Refill, Normal Inspection. absent: Joint Swelling, Pedal Edema - Back Exam Back Exam: NORMAL INSPECTION - Neurological Exam Neurological Exam: Alert, Awake, Normal Gait, Oriented x3 Neuro motor strength exam: Left Upper Extremity: 5, Right Upper Extremity: 5, Left Lower Extremity: 5, Right Lower Extremity: 5 - Skin Skin Exam: Dry, Intact, Normal Color, Warm Assessment and Plan - Assessment and Plan (Free Text) Assessment: Patient is a 37 y/o M with no significant PMHx who presented to the ED for x2 episodes of rectal bleeding and pre-syncopal episode. Patient is admitted for Hematochezia and pre-syncope. GI was consulted. Patient is going for endoscopy today. Plan: Hematochezia possibly 2/2 NSAID use - Endoscopy today - Hgb 12.1 on admission, 10.5 this morning. Patient asymptomatic. - Trend H/H q4-6 hours. - Type and Cross. Transfuse as needed. - Advance diet after endoscopy - Protonix 40 IVP q12; consider gtt if bleeding worsens - NS at 100 mls/hr - GI consulted (Dr. Cano), recs appreciated. - zofran for nausea - urine drug screen negative Pre-syncopal episode - Orthostatics met: sitting (BP 129/66 HR 77) to standing (119/64 HR 97) - EKG NSR with no ST or T wave changes. - CXR: no active disease DVT ppx: SCD GI ppx: PTX 40 mg Q12 Dispo: Endoscopy today. Follow up recommendations as per GI. Case was discussed and reviewed with Attending Physician, Dr. Garibay. <Yue Garibay - Last Filed: 01/12/18 06:42> Objective - Vital Signs/Intake and Output Vital Signs (last 24 hours): Temp Pulse Resp BP Pulse Ox 98.3 F 83 18 121/64 99 01/11/18 22:00 01/11/18 22:00 01/11/18 22:00 01/11/18 22:00 01/11/18 22:00 Intake and Output: 01/11/18 01/12/18 18:59 06:59 Intake Total 1735 Balance 1735 - Medications Medications: Current Medications Sodium Chloride (Sodium Chloride 0.9%) 1,000 mls @ 100 mls/hr IV .Q10H BERTIN Ondansetron HCl (Zofran Inj) 4 mg IVP Q6H PRN PRN Reason: Nausea/Vomiting Pantoprazole Sodium (Protonix Inj) 40 mg IVP Q12 BERTIN Last Admin: 01/11/18 23:35 Dose: 40 mg - Labs Labs: 01/11/18 06:30 01/11/18 06:30 PT 11.5 SECONDS (9.4-12.5) 01/10/18 08:03 INR 1.00 01/10/18 08:03 APTT 24.7 Seconds (25.1-36.5) L 01/10/18 08:03 Attending/Attestation - Attestation I have personally seen and examined this patient.: Yes I have fully participated in the care of the patient.: Yes I have reviewed all pertinent clinical information, including history, physical exam and plan: Yes Notes (Text): 01/11/18 37 year old male with no significant past medical history who presented with complaint of rectal bleeding and presyncopal episode. He was admitted to rule out GIB in setting of NSAIDs use (takes advil 2 tabs qpm). Serial H/H have been stable. He is on iv protonix and plan is for EGD this afternoon. Yue Garibay MD Hospitalist.
[2018-01-12 07:42] LABS: BASO # 0.02 K/mm3 (0.0-2.0); BASO % 0.3 % (0.0-3.0); EOS # 0.2 (0.0-0.7); EOS % 3.1 % (1.5-5.0); GRAN # 2.6 (1.4-6.5); GRAN % 45.5 % (50.0-68.0); HEMOGLOBIN 10.2 g/dL (14.0-18.0); LYMPH # 2.4 (1.2-3.4); LYMPH % 42.7 % (22.0-35.0); MEAN CELL VOLUME 84.4 fl (80.0-105.0); MEAN CORPUSCULAR HEMOGLOBIN 27.9 pg (25.0-35.0); MEAN CORPUSCULAR HGB CONC 33.1 g/dl (31.0-37.0); MONO # 0.5 (0.1-0.6); MONO % 8.4 % (1.0-6.0); RBC 3.65 10^6/uL (3.5-6.1); RED CELL DISTRIBUTION WIDTH 12.1 % (11.5-14.5); WHITE BLOOD COUNT 5.7 10^3/uL (4.5-11.0)
[2018-01-12 08:02] LABS: ALB/GLOB RATIO 1.5 (1.1-1.8); ALBUMIN 3.2 g/dL (3.0-4.8); ALT/SGPT 33 U/L (7-56); AST/SGOT 19 U/L (17-59); BLOOD UREA NITROGEN 9 mg/dL (7-21); CALCIUM 8.4 mg/dL (8.4-10.5); GFR NON-AFRICAN AMERICAN > 60
[2018-01-12 09:46] VITALS: BP 108/59; PULSE 79; RESP 20; TEMP 98
--- NOTE | 2018-01-12 10:40 | CP.PCM.PN ---
<Baltazar Spears - Last Filed: 01/12/18 11:23> Subjective - Date & Time of Evaluation Date of Evaluation: 01/12/18 Time of Evaluation: 10:32 - Subjective Subjective: PGY-2 GI progress note for Dr Pham. No acute events overnight. Patient had a bowel movement this morning indicative of melana. Denied any pain. Denied weakness, lightheadedness, or dizziness. Tolerating diet well. Eager to go home. Objective - Vital Signs/Intake and Output Vital Signs (last 24 hours): Temp Pulse Resp BP Pulse Ox 98 F 79 20 108/59 L 99 01/12/18 06:00 01/12/18 06:00 01/12/18 06:00 01/12/18 06:00 01/12/18 06:00 Intake and Output: 01/12/18 01/12/18 06:59 18:59 Intake Total 1735 Balance 1735 - Medications Medications: Current Medications Sodium Chloride (Sodium Chloride 0.9%) 1,000 mls @ 100 mls/hr IV .Q10H BERTIN Ondansetron HCl (Zofran Inj) 4 mg IVP Q6H PRN PRN Reason: Nausea/Vomiting Pantoprazole Sodium (Protonix Inj) 40 mg IVP Q12 BERTIN Last Admin: 01/12/18 09:55 Dose: 40 mg - Labs Labs: 01/12/18 07:00 01/12/18 07:00 PT 11.5 SECONDS (9.4-12.5) 01/10/18 08:03 INR 1.00 01/10/18 08:03 APTT 24.7 Seconds (25.1-36.5) L 01/10/18 08:03 - Additional Findings Additional findings: - Constitutional Appears: Well, No Acute Distress - Head Exam Head Exam: ATRAUMATIC, NORMAL INSPECTION - Eye Exam Eye Exam: EOMI, Normal appearance, PERRL. absent: Scleral icterus - ENT Exam ENT Exam: Mucous Membranes Moist - Respiratory Exam Respiratory Exam: Clear to Auscultation Bilateral. absent: Rales, Rhonchi, Wheezes - Cardiovascular Exam Cardiovascular Exam: REGULAR RHYTHM, +S1, +S2. absent: Tachycardia, JVD, Systolic Murmur - GI/Abdominal Exam GI & Abdominal Exam: Normal Bowel Sounds, Soft. absent: Distended, Firm, Gu arding, Hernia, Tenderness - Extremities Exam Extremities exam: Positive for: normal inspection - Neurological Exam Neurological exam: Alert, Oriented x3 - Skin Skin Exam: Normal Color, Warm Assessment and Plan - Assessment and Plan (Free Text) Plan: Mr Gaitan is a 37 year old male with no significant past medical history who presents to the ED for two episodes of dark red blood per rectum: Hematochezia -likely 2/2 to daily nsaid use (had been taking advil PM nightly for past 2 months) -trend hemoglobin with serial H/H's -protonix 40mg ivp q12h - switch to drip if further bleeding noticed -continue puree diet -zofran for nausea -orthostatics normal -alcohol and urine drug screen negative -EGD findings: * normal esophagus, non-bleeding erosive gastropathy, gastritis with hemorrhage (biopsied), congested duodenal mucosa (biopsied), one non-bleeding duodenal ulcer with a clean ulcer base, non-bleeding gastric ulcer with no stigmata of bleeding Recommendations: -puree diet for next 5 days then soft diet for 2 weeks then regular diet -protonix 40mg po in morning and evening for 7 days then protonix 40mg po once a day for 3 months -discontinue aspirin and NSAIDs indefinitely -follow-up pathology results -follow-up with Dr Pham in his clinic in 7-10 days -anticipate black stools for next few days however if black stools do not improve or if symptoms of lightheadedness return then return to emergency department immediately Seen and discussed with Dr Pham <Gladis Pham V - Last Filed: 01/13/18 00:09> Objective - Vital Signs/Intake and Output Vital Signs (last 24 hours): Temp Pulse Resp BP Pulse Ox 98 F 79 20 108/59 L 99 01/12/18 06:00 01/12/18 06:00 01/12/18 06:00 01/12/18 06:00 01/12/18 06:00 - Labs Labs: 01/12/18 07:00 01/12/18 07:00 PT 11.5 SECONDS (9.4-12.5) 01/10/18 08:03 INR 1.00 01/10/18 08:03 APTT 24.7 Seconds (25.1-36.5) L 01/10/18 08:03 Attending/Attestation - Attestation I have personally seen and examined this patient.: Yes I have fully participated in the care of the patient.: Yes I have reviewed all pertinent clinical information, including history, physical exam and plan: Yes Notes (Text): This is an addendum to GI followup report dictated by the Database Administration Project Manager. The patient was seen and evaluated earlier. Medical records, lab studies, imagings were reviewed. Last 24 hours events reviewed. Agreed with the above treatment plan as outlined in Database Administration Project Manager 's notes with the addition of the following 01/13/18 00:09
[2018-01-12] MEDS ORDERED: Influenza Vaccine 60 mcg/0.5 mL SYR (4YR UP) IM ONE (12:36)
--- NOTE | 2018-01-12 18:55 | CP.PCM.DIS ---
<Bishop García - Last Filed: 01/12/18 18:47> Provider - Provider Date of Admission: 01/10/18 08:51 Attending physician: Yue Garibay MD Time Spent in preparation of Discharge (in minutes): 35 Hospital Course - Lab Results Lab Results: Most Recent Lab Values WBC 5.7 10^3/uL (4.5-11.0) 01/12/18 07:00 RBC 3.65 10^6/uL (3.5-6.1) 01/12/18 07:00 Hgb 10.2 g/dL (14.0-18.0) L 01/12/18 07:00 Hct 30.8 % (42.0-52.0) L 01/12/18 07:00 MCV 84.4 fl (80.0-105.0) 01/12/18 07:00 MCH 27.9 pg (25.0-35.0) 01/12/18 07:00 MCHC 33.1 g/dl (31.0-37.0) 01/12/18 07:00 RDW 12.1 % (11.5-14.5) 01/12/18 07:00 Plt Count 248 10^3/uL (120.0-450.0) 01/12/18 07:00 MPV 10.0 fl (7.0-11.0) 01/12/18 07:00 Gran % 45.5 % (50.0-68.0) L 01/12/18 07:00 Lymph % (Auto) 42.7 % (22.0-35.0) H 01/12/18 07:00 Holmes % (Auto) 8.4 % (1.0-6.0) H 01/12/18 07:00 Eos % (Auto) 3.1 % (1.5-5.0) 01/12/18 07:00 Baso % (Auto) 0.3 % (0.0-3.0) 01/12/18 07:00 Gran # 2.60 (1.4-6.5) 01/12/18 07:00 Lymph # (Auto) 2.4 (1.2-3.4) 01/12/18 07:00 Holmes # (Auto) 0.5 (0.1-0.6) 01/12/18 07:00 Eos # (Auto) 0.2 (0.0-0.7) 01/12/18 07:00 Baso # (Auto) 0.02 K/mm3 (0.0-2.0) 01/12/18 07:00 PT 11.5 SECONDS (9.4-12.5) 01/10/18 08:03 INR 1.00 01/10/18 08:03 APTT 24.7 Seconds (25.1-36.5) L 01/10/18 08:03 Sodium 139 mmol/L (132-148) 01/12/18 07:00 Potassium 4.0 mmol/L (3.6-5.0) 01/12/18 07:00 Chloride 105 mmol/L (98-107) 01/12/18 07:00 Carbon Dioxide 28 mmol/L (21-33) 01/12/18 07:00 Anion Gap 10 (10-20) 01/12/18 07:00 BUN 9 mg/dL (7-21) 01/12/18 07:00 Creatinine 0.9 mg/dl (0.8-1.5) 01/12/18 07:00 Est GFR ( Amer) > 60 01/12/18 07:00 Est GFR (Non-Af Amer) > 60 01/12/18 07:00 Random Glucose 94 mg/dL (70-110) 01/12/18 07:00 Calcium 8.4 mg/dL (8.4-10.5) 01/12/18 07:00 Phosphorus 3.0 mg/dL (2.5-4.5) 01/10/18 08:00 Magnesium 2.1 mg/dL (1.7-2.2) 01/10/18 08:00 Total Bilirubin 0.5 mg/dL (0.2-1.3) 01/12/18 07:00 AST 19 U/L (17-59) 01/12/18 07:00 ALT 33 U/L (7-56) 01/12/18 07:00 Alkaline Phosphatase 41 U/L (38-126) 01/12/18 07:00 Troponin I < 0.01 ng/mL 01/10/18 13:45 Total Protein 5.5 g/dL (5.8-8.3) L 01/12/18 07:00 Albumin 3.2 g/dL (3.0-4.8) 01/12/18 07:00 Globulin 2.2 gm/dL 01/12/18 07:00 Albumin/Globulin Ratio 1.5 (1.1-1.8) 01/12/18 07:00 Lipase 92 U/L (23-300) 01/10/18 08:03 Urine Opiates Screen Negative (NEGATIVE) 01/10/18 17:40 Urine Methadone Screen Negative (NEGATIVE) 01/10/18 17:40 Ur Barbiturates Screen Negative (NEGATIVE) 01/10/18 17:40 Ur Phencyclidine Scrn Negative (NEGATIVE) 01/10/18 17:40 Ur Amphetamines Screen Negative (NEGATIVE) 01/10/18 17:40 U Benzodiazepines Scrn Negative (NEGATIVE) 01/10/18 17:40 U Oth Cocaine Metabols Negative (NEGATIVE) 01/10/18 17:40 U Cannabinoids Screen Negative (NEGATIVE) 01/10/18 17:40 Alcohol, Quantitative < 10 mg/dL (0-10) 01/10/18 08:00 Blood Type O POSITIVE 01/10/18 08:03 Blood Type Confirm O POSITIVE 01/10/18 08:03 Antibody Screen Negative 01/10/18 08:03 BBK History Checked No verified bt 01/10/18 08:03 - Hospital Course Hospital Course: Bishop García, PGY1 Discharge Summary for Dr. Garibay Patient is a 37 y/o M with no PMHx who present to the ED accompanied by his for dark red blood per rectum. He stated that at approximately 2am today he started feeling like he was about to lose consciousness and became diaphoretic. He subsequently used the bathroom where he noticed blood in the toilet bowl. In the ED, vital signs are stable. Patient's Hgb was 12.1. Patient was in no acute distress and not actively bleeding. Rectal exam in ED showed red blood, positive guaiac test, no fissures or hemorroids. Medical team was consulted for evaluation of rectal bleeding. Patient has been taking Advil chronically twice a day to help with his insomnia. Patient admitted for hematochezia possibly 2/2 NSAID use. Patient was also admitted for pre-syncopal episode with +orthostatics. GI was consulted. Patient's hemoglobin was stable during hospital course and he had no active bleed during admission. Patient was placed on protonix during stay. As per GI, endoscopy was recommended to figure out source of bleed. Endoscopy showed multiple ulcers in the prepyloric and pylorus region of stomach. Bx was taken for H. Pylori testing, which will be followed up after patient's discharge. Otherwise, patient has been clinically stable during hospital course and denies any abdominal pain, further rectal bleeding, or n/v/d. Stable for discharge. Patient will be d/c home on protonix and was told to stop taking his Advil medication. Patient will f/u with GI clinic in 2 weeks. Discharge Exam - Head Exam Head Exam: ATRAUMATIC, NORMAL INSPECTION, NORMOCEPHALIC - Eye Exam Eye Exam: EOMI, Normal appearance, PERRL Pupil Exam: NORMAL ACCOMODATION, PERRL - ENT Exam ENT Exam: Mucous Membranes Moist, Normal Exam - Respiratory Exam Respiratory Exam: Clear to PA & Lateral. absent: Rales, Rhonchi, Wheezes - Cardiovascular Exam Cardiovascular Exam: REGULAR RHYTHM, +S1, +S2 - GI/Abdominal Exam GI & Abdominal Exam: Normal Bowel Sounds - Extremities Exam Extremities exam: full ROM, normal inspection, pedal pulses present - Neurological Exam Neurological exam: Alert, CN II-XII Intact, Normal Gait, Oriented x3, Reflexes Normal - Skin Skin Exam: Dry, Intact, Normal Color, Warm Discharge Plan - Discharge Medications Prescriptions: Pantoprazole Sodium [Protonix] 40 mg PO DAILY 90 Days #97 ect - Follow Up Plan Condition: GUARDED Disposition: HOME/ ROUTINE Instructions: Syncope (Fainting), Gastric Ulcer (DC), Nonsteroidal Antiinflammatory Drugs (NSAIDs), Quitting Smoking, Flu Vaccine Additional Instructions: -puree diet for next 5 days then soft diet for 2 weeks then regular diet -protonix 40mg po in morning and evening for 7 days then protonix 40mg po once a day for 3 months -discontinue aspirin and NSAIDs indefinitely -follow-up pathology results -follow-up with Dr Pham in his clinic in 7-10 days -anticipate black stools for next few days however if black stools do not improve or if symptoms of lightheadedness/fatigue return then return to emergency department immediately Referrals: Gladis Pham MD [Medical Doctor] - <Yue Garibay - Last Filed: 01/13/18 07:23> Provider - Provider Date of Admission: 01/10/18 08:51 Attending physician: Yue Garibay MD Hospital Course - Lab Results Lab Results: Most Recent Lab Values WBC 5.7 10^3/uL (4.5-11.0) 01/12/18 07:00 RBC 3.65 10^6/uL (3.5-6.1) 01/12/18 07:00 Hgb 10.2 g/dL (14.0-18.0) L 01/12/18 07:00 Hct 30.8 % (42.0-52.0) L 01/12/18 07:00 MCV 84.4 fl (80.0-105.0) 01/12/18 07:00 MCH 27.9 pg (25.0-35.0) 01/12/18 07:00 MCHC 33.1 g/dl (31.0-37.0) 01/12/18 07:00 RDW 12.1 % (11.5-14.5) 01/12/18 07:00 Plt Count 248 10^3/uL (120.0-450.0) 01/12/18 07:00 MPV 10.0 fl (7.0-11.0) 01/12/18 07:00 Gran % 45.5 % (50.0-68.0) L 01/12/18 07:00 Lymph % (Auto) 42.7 % (22.0-35.0) H 01/12/18 07:00 Holmes % (Auto) 8.4 % (1.0-6.0) H 01/12/18 07:00 Eos % (Auto) 3.1 % (1.5-5.0) 01/12/18 07:00 Baso % (Auto) 0.3 % (0.0-3.0) 01/12/18 07:00 Gran # 2.60 (1.4-6.5) 01/12/18 07:00 Lymph # (Auto) 2.4 (1.2-3.4) 01/12/18 07:00 Holmes # (Auto) 0.5 (0.1-0.6) 01/12/18 07:00 Eos # (Auto) 0.2 (0.0-0.7) 01/12/18 07:00 Baso # (Auto) 0.02 K/mm3 (0.0-2.0) 01/12/18 07:00 PT 11.5 SECONDS (9.4-12.5) 01/10/18 08:03 INR 1.00 01/10/18 08:03 APTT 24.7 Seconds (25.1-36.5) L 01/10/18 08:03 Sodium 139 mmol/L (132-148) 01/12/18 07:00 Potassium 4.0 mmol/L (3.6-5.0) 01/12/18 07:00 Chloride 105 mmol/L (98-107) 01/12/18 07:00 Carbon Dioxide 28 mmol/L (21-33) 01/12/18 07:00 Anion Gap 10 (10-20) 01/12/18 07:00 BUN 9 mg/dL (7-21) 01/12/18 07:00 Creatinine 0.9 mg/dl (0.8-1.5) 01/12/18 07:00 Est GFR ( Amer) > 60 01/12/18 07:00 Est GFR (Non-Af Amer) > 60 01/12/18 07:00 Random Glucose 94 mg/dL (70-110) 01/12/18 07:00 Calcium 8.4 mg/dL (8.4-10.5) 01/12/18 07:00 Phosphorus 3.0 mg/dL (2.5-4.5) 01/10/18 08:00 Magnesium 2.1 mg/dL (1.7-2.2) 01/10/18 08:00 Total Bilirubin 0.5 mg/dL (0.2-1.3) 01/12/18 07:00 AST 19 U/L (17-59) 01/12/18 07:00 ALT 33 U/L (7-56) 01/12/18 07:00 Alkaline Phosphatase 41 U/L (38-126) 01/12/18 07:00 Troponin I < 0.01 ng/mL 01/10/18 13:45 Total Protein 5.5 g/dL (5.8-8.3) L 11/08/18 07:00 Albumin 3.2 g/dL (3.0-4.8) 01/12/18 07:00 Globulin 2.2 gm/dL 01/12/18 07:00 Albumin/Globulin Ratio 1.5 (1.1-1.8) 01/12/18 07:00 Lipase 92 U/L (23-300) 01/10/18 08:03 Urine Opiates Screen Negative (NEGATIVE) 01/10/18 17:40 Urine Methadone Screen Negative (NEGATIVE) 01/10/18 17:40 Ur Barbiturates Screen Negative (NEGATIVE) 01/10/18 17:40 Ur Phencyclidine Scrn Negative (NEGATIVE) 01/10/18 17:40 Ur Amphetamines Screen Negative (NEGATIVE) 01/10/18 17:40 U Benzodiazepines Scrn Negative (NEGATIVE) 01/10/18 17:40 U Oth Cocaine Metabols Negative (NEGATIVE) 01/10/18 17:40 U Cannabinoids Screen Negative (NEGATIVE) 01/10/18 17:40 Alcohol, Quantitative < 10 mg/dL (0-10) 01/10/18 08:00 Blood Type O POSITIVE 01/10/18 08:03 Blood Type Confirm O POSITIVE 01/10/18 08:03 Antibody Screen Negative 01/10/18 08:03 BBK History Checked No verified bt 01/10/18 08:03 Attending/Attestation - Attestation I have personally seen and examined this patient.: Yes I have fully participated in the care of the patient.: Yes I have reviewed all pertinent clinical information, including history, physical exam and plan: Yes Notes (Text): 01/12/18 37 year old male with no significant past medical history who presented with complaint of rectal bleeding and presyncopal episode. He was admitted to rule out GIB in setting of NSAIDs use (takes advil 2 tabs qpm). Serial H/H were stable. He was started on iv protonix and seen by GI. He underwent EGD yesterday with findings of multiple ulcers in region of stomach. Biopsy was taken to rule out H Pylori. Patient is discharged home to follow up pmd or clinic (he is undecided). Follow up in with GI to follow up biopsy. Continue with protonix bid x 1 week followed by once daily. Counselled on avoiding NSAIDs. Yue Garibay MD Hospitalist.
== END 2018-01-12 16:05 | disposition home or self-care (01) | DRG 379 ==
LOC: ED 06:59 → ERH 08:51 → 5RSO 09:58
PROVIDERS: ADMIT Internal Medicine; ATTEND Internal Medicine
PROC: 0DB98ZX Excision of Duodenum, Via Natural or Artificial Opening Endoscopic, Diagnostic (ICD-10-PCS; 2018-01-11)
PROC: 0DB68ZX Excision of Stomach, Via Natural or Artificial Opening Endoscopic, Diagnostic (ICD-10-PCS; principal; 2018-01-11 14:30)
PROC: 3E02340 Introduction of Influenza Vaccine into Muscle, Percutaneous Approach (ICD-10-PCS; 2018-01-12)
DX: K29.71 Gastritis, unspecified, with bleeding (principal); K26.9 Duodenal ulcer, unspecified as acute or chronic, without hemorrhage or perforation; K25.9 Gastric ulcer, unspecified as acute or chronic, without hemorrhage or perforation; T39.315A Adverse effect of propionic acid derivatives, initial encounter; K62.5 Hemorrhage of anus and rectum; B96.81 Helicobacter pylori [H. pylori] as the cause of diseases classified elsewhere; D64.9 Anemia, unspecified; I95.1 Orthostatic hypotension; Z79.1 Long term (current) use of non-steroidal anti-inflammatories (NSAID); Z23 Encounter for immunization